=== PATIENT | female | born 1950 | race American Indian/Alaskan Native ===

== ENCOUNTER 2017-01-07 11:01 | Outpatient (CLI) | payer MEDICARE ==
--- NOTE | 2017-01-07 15:47 | Mammography Report ---
BILATERAL DIGITAL SCREENING MAMMOGRAM with CAD: 01/07/17 11:01:00 CLINICAL: Routine screening. COMPARISON:None available. FINDINGS: The breasts are almost entirely fatty. No mass, architectural distortion or suspicious calcifications. IMPRESSION: No mammographic evidence of malignancy. BI-RADS CATEGORY: 1 - - Negative RECOMMENDATION: Routine mammographic screening in one year. COMMENT: Patient follow-up letters are generated by our [employer] application.
== END 2017-01-07 11:02 | disposition home or self-care (01) ==
LOC: MAMMO 11:01
PROVIDERS: ATTEND Family Medicine
DX: Z12.31 Encounter for screening mammogram for malignant neoplasm of breast (principal)
CPT/HCPCS: 77067; G0202

== ENCOUNTER 2017-11-20 09:59 | Outpatient (CLI) | payer MEDICARE ==
--- NOTE | 2017-11-20 20:13 | XRay Report ---
FINAL REPORT EXAM: XR KNEE BILAT 4+V HISTORY: BILATERAL KNEE PAIN TECHNIQUE: Bilateral knees 8 views PRIORS: None. FINDINGS: There is left knee prosthesis. Prostatic components are intact no abnormal bony lucencies are seen. No evidence for joint effusion. No acute fracture identified. There is marked degenerative change at the right knee. There is medial tibiofemoral joint space narrowing and narrowing at the patellofemoral joint space with lateral tilting of the patella. No acute fracture identified. No evidence for joint effusion IMPRESSION: Left knee prosthesis. No acute findings moderate to severe DJD at the right knee greatest at the medial tibiofemoral joint space
== END 2017-11-20 10:00 | disposition home or self-care (01) ==
LOC: SPVIMAG 09:59
PROVIDERS: ATTEND Orthopaedic Surgery Sports Medicine
DX: M17.11 Unilateral primary osteoarthritis, right knee (principal); Z96.652 Presence of left artificial knee joint

== ENCOUNTER 2019-04-15 13:35 | Emergency (ER) | payer MEDICARE ==
[2019-04-15 13:44] VITALS: BP 164/98
--- NOTE | 2019-04-15 13:44 | Event Note ---
ED Screening Note ED Screening Note: r shouler and right knee pain sp glf at grocery store; on wet floor per pt states landed on right knee- ambulatory tried to break fall with r arm pmh dm htn hpld rx no blood thinners metformin lisinopril statin pain pills for r shoulder blade pain n/v intact This initial assessment/diagnostic orders/clinical plan/treatment(s) is/are subject to change based on patients health status, clinical progression and re- assessment by fellow clinical providers in the ED. Further treatment and workup at subsequent clinical providers discretion. Patient/guardian urged not to elope from the ED as their condition may be serious if not clinically assessed and managed. Initial orders include:
--- NOTE | 2019-04-15 14:37 | XRay Report ---
RIGHT SHOULDER 3 VIEWS INDICATION / CLINICAL INFORMATION: Fall with right shoulder pain. COMPARISON: None available. FINDINGS: BONES / JOINT(S): There are moderate hypertrophic changes involving the glenoid inferolaterally. Ther e are also appears to be a reverse Hill-Sachs lesion. The findings are suggestive of old posterior di slocation. There are mild degenerative changes involving the acromioclavicular joint. I see no eviden ce of acute fracture or dislocation. SOFT TISSUES: No significant abnormality. ADDITIONAL FINDINGS: The visualized portions of the lungs are clear. IMPRESSION: Findings characteristic of prior posterior shoulder dislocation. No evidence of acute fra cture or acute dislocation. Signer Name: Jordan Mishra MD Signed: 04/15/2019 2:32 PM Workstation Name: [id number]
--- NOTE | 2019-04-15 14:39 | XRay Report ---
RIGHT KNEE 3 VIEWS INDICATION / CLINICAL INFORMATION: Fall with right knee pain. COMPARISON: None available. FINDINGS: BONES / JOINT(S): There are moderate tricompartmental degenerative changes, most prominent involving the medial tibiofemoral and patellofemoral joint spaces. There is no evidence of fracture or dislocat ion. There is a mild joint effusion. SOFT TISSUES: No significant abnormality. ADDITIONAL FINDINGS: None. IMPRESSION: 1. Mild joint effusion without acute osseous abnormality. 2. Moderate osteoarthritis. Signer Name: Jordan Mishra MD Signed: 04/15/2019 2:34 PM Workstation Name: [id number]
[2019-04-15] MEDS ORDERED: ULTRAM PO ONE (14:53)
--- NOTE | 2019-04-15 15:25 | XRay Report ---
CERVICAL SPINE 3 VIEWS INDICATION / CLINICAL INFORMATION: Fall with posterior neck pain and right arm/hand numbness. COMPARISON: None available. FINDINGS: BONES / JOINT(S): There is ampy-vy-rqycipih degenerative disc disease at C5-6 and C6-7. There is mini mal degenerative disc disease at C4-5. There is no evidence of fracture or subluxation. SOFT TISSUES: The prevertebral soft tissues are normal. ADDITIONAL FINDINGS: The visualized lung apices are clear. IMPRESSION: Lower cervical spondylosis without acute abnormality. Signer Name: Jordan Mishra MD Signed: 04/15/2019 3:20 PM Workstation Name: [id number]
--- NOTE | 2019-04-15 15:51 | Emergency Department Report ---
ED Fall HPI - General Chief Complaint: Fall Stated Complaint: FALL Time Seen by Provider: 04/15/19 13:41 Source: patient Mode of arrival: Ambulatory - History of Present Illness Initial Comments: Patient is a 68-year-old female who is presenting with some pain after fall. Patient was in a grocery store and slipped on some wet water. Patient is having pain in the right shoulder right knee and her neck. Patient states all these joints feel stiff and hurt when she moves. Pain is 5 out of 10 in severity. Patient denies head injury or loss of consciousness. - Related Data Previous Rx's Medication Instructions Recorded Last Taken Type HYDROcodone/APAP 5-325 [[place] 1 each PO Q6HR PRN #20 tablet 11/01/13 Unknown Rx 5/325 mg] Ibuprofen [Motrin 600 MG tab] 600 mg PO Q8H PRN #20 tablet 04/15/19 Unknown Rx methOCARBAMOL [Robaxin TAB] 500 mg PO Q6H PRN #14 tablet 04/15/19 Unknown Rx traMADol [Ultram] 50 mg PO Q6HR PRN #12 tablet 04/15/19 Unknown Rx Allergies Allergy/AdvReac Type Severity Reaction Status Date / Time No Known Allergies Allergy Verified 04/15/19 13:37 ED Review of Systems ROS: Stated complaint: FALL Other details as noted in HPI Comment: All other systems reviewed and negative ED Past Medical Hx - Past Medical History Hx Diabetes: Yes Hx Arthritis: Yes - Surgical History Hx Cholecystectomy: Yes Additional Surgical History: tubal x2 ,left total knee replacement - Social History Smoking Status: Never Smoker Substance Use Type: None - Medications Home Medications: Home Medications Medication Instructions Recorded Confirmed Last Taken Type HYDROcodone/APAP 5-325 [[place] 1 each PO Q6HR PRN #20 tablet 11/01/13 Unknown Rx 5/325 mg] Ibuprofen [Motrin 600 MG tab] 600 mg PO Q8H PRN #20 tablet 04/15/19 Unknown Rx methOCARBAMOL [Robaxin TAB] 500 mg PO Q6H PRN #14 tablet 04/15/19 Unknown Rx traMADol [Ultram] 50 mg PO Q6HR PRN #12 tablet 04/15/19 Unknown Rx ED Physical Exam - General Limitations: No Limitations General appearance: alert, in no apparent distress - Head Head exam: Present: atraumatic, normocephalic - Eye Eye exam: Present: normal appearance, PERRL, EOMI - ENT ENT exam: Present: mucous membranes moist - Neck Neck exam: Present: normal inspection, tenderness (right knwee) - Respiratory Respiratory exam: Present: normal lung sounds bilaterally. Absent: respiratory distress, wheezes, rales, rhonchi - Cardiovascular Cardiovascular Exam: Present: regular rate, normal rhythm. Absent: systolic murmur, diastolic murmur, rubs, gallop - GI/Abdominal GI/Abdominal exam: Present: soft, normal bowel sounds. Absent: distended, tenderness, guarding, rebound - Extremities Exam Extremities exam: Present: normal inspection, tenderness (right shoulder osvaldo FROM), joint swelling (bilateral knee right knee tender) - Back Exam Back exam: Present: normal inspection - Neurological Exam Neurological exam: Present: alert, oriented X3 - Psychiatric Psychiatric exam: Present: normal affect, normal mood - Skin Skin exam: Present: warm, dry, intact, normal color. Absent: rash ED Course Vital Signs 04/15/19 13:42 Temperature 98.5 F Pulse Rate 102 H Respiratory 16 Rate Blood Pressure 164/98 [Left] O2 Sat by Pulse 98 Oximetry ED Medical Decision Making - Radiology Data [facility] [address] [place] [address] XRay Report Signed Patient: HAYDEE SEARS MR#: [id number] : 1950 Acct:[id number] Age/Sex: 68 / F ADM Date: 04/15/19 Loc: ED Attending Dr: Ordering Physician: ABHAY RAO MD Date of Service: 04/15/19 Procedure(s): XR spine cervical 2-3V Accession Number(s): [id number] cc: ABHAY RAO MD Fluoro Time In Minutes: CERVICAL SPINE 3 VIEWS INDICATION / CLINICAL INFORMATION: Fall with posterior neck pain and right arm/hand numbness. COMPARISON: None available. FINDINGS: BONES / JOINT(S): There is orrn-cj-zdledela degenerative disc disease at C5-6 and C6-7. There is minimal degenerative disc disease at C4-5. There is no evidence of fracture or subluxation. SOFT TISSUES: The prevertebral soft tissues are normal. ADDITIONAL FINDINGS: The visualized lung apices are clear. IMPRESSION: Lower cervical spondylosis without acute abnormality. Signer Name: Aye Mishra MD Signed: 04/15/2019 3:20 PM Workstation Name: [id number] Transcribed By: RT Dictated By: Aye Mishra MD Electronically Authenticated By: Aye Mishra MD Signed Date/Time: 04/15/19 1520 [facility] [address] [place] [address] XRay Report Signed Patient: HAYDEE SEARS MR#: [id number] : 1950 Acct:[id number] Age/Sex: 68 / F ADM Date: 04/15/19 Loc: ED Attending Dr: Ordering Physician: MIESHA RODRÍGUEZ Date of Service: 04/15/19 Procedure(s): XR shoulder 2+V RT Accession Number(s): [id number] cc: MIESHA RODRÍGUEZ Fluoro Time In Minutes: RIGHT SHOULDER 3 VIEWS INDICATION / CLINICAL INFORMATION: Fall with right shoulder pain. COMPARISON: None available. FINDINGS: BONES / JOINT(S): There are moderate hypertrophic changes involving the glenoid inferolaterally. There are also appears to be a reverse Hill-Sachs lesion. The findings are suggestive of old posterior dislocation. There are mild degenerative changes involving the acromioclavicular joint. I see no evidence of acute fracture or dislocation. SOFT TISSUES: No significant abnormality. ADDITIONAL FINDINGS: The visualized portions of the lungs are clear. IMPRESSION: Findings characteristic of prior posterior shoulder dislocation. No evidence of acute fracture or acute dislocation. Signer Name: Aye Mishra MD Signed: 04/15/2019 2:32 PM Workstation Name: [id number] Transcribed By: RT Dictated By: Aye Mishra MD Electronically Authenticated By: Aye Mishra MD Signed Date/Time: 04/15/19 1432 Knee XR wnl - Medical Decision Making Patient given meds for symptomatic relief. No fractures present. Patient did feel better with a cervical collar on and she has been sent home with a soft cervical collar. Critical care attestation.: If time is entered above; I have spent that time in minutes in the direct care of this critically ill patient, excluding procedure time. ED Disposition Clinical Impression: Cervical strain, acute Qualifiers: Encounter type: initial encounter Qualified Code(s): S16.1XXA - Strain of muscle, fascia and tendon at neck level, initial encounter Knee contusion Qualifiers: Encounter type: initial encounter Laterality: unspecified laterality Qualified Code(s): S80.00XA - Contusion of unspecified knee, initial encounter Shoulder pain Qualifiers: Chronicity: acute Laterality: right Qualified Code(s): M25.511 - Pain in right shoulder Fall Qualifiers: Encounter type: initial encounter Qualified Code(s): W19.XXXA - Unspecified fall, initial encounter Disposition: TO HOME OR SELFCARE Is pt being admited?: No Does the pt Need Aspirin: No Condition: Stable Instructions: Muscle Strain (ED), RICE Therapy (ED), Cervical Spine Strain (ED) Referrals: AYE JANE MD [Staff Physician] - 3-5 Days Time of Disposition: 15:51
== END 2019-04-15 15:59 | disposition home or self-care (01) ==
LOC: ED 13:35
DX: S16.1XXA Strain of muscle, fascia and tendon at neck level, initial encounter (principal); S80.01XA Contusion of right knee, initial encounter; M25.511 Pain in right shoulder; E11.9 Type 2 diabetes mellitus without complications; M19.90 Unspecified osteoarthritis, unspecified site; Z90.49 Acquired absence of other specified parts of digestive tract; Z98.51 Tubal ligation status; Z96.652 Presence of left artificial knee joint; W18.39XA Other fall on same level, initial encounter; Y93.89 Activity, other specified; Y92.512 Supermarket, store or market as the place of occurrence of the external cause; Y99.8 Other external cause status
CPT/HCPCS: 72040